=== PATIENT | male | born 2000 | race Caucasian/White ===

== ENCOUNTER 2024-01-04 14:50 | Emergency (ER) | payer OTHER, SELFPAY ==
[2024-01-04 14:53] VITALS: BP 132/55; PULSE 79; RESP 18; TEMP 36.7; O2SAT 98
--- NOTE | 2024-01-04 15:00 | DI.RAD_ITS ---
Exam(s) XR CLAVICLE RT EXAM: XR CLAVICLE RT CLINICAL HISTORY: fall-deformity. TECHNIQUE: 2D digital imaging was performed. COMPARISON: No exams were available for comparison FINDINGS: 3 views There is an acute comminuted displaced midshaft fracture of the clavicle. No dislocation of the AC j oint. Bone density normal. No osseous lesions. IMPRESSION: Comminuted displaced midshaft fracture. DATA REPOSITORY: RADIATION DOSE DELIVERED:
[2024-01-04] MEDS: ACETAMINOPHEN 1,000 MG/100 ML BTL 400 MG IVPB (15:16)
[2024-01-04] MEDS: Ketorolac 15 MG/ML VIAL IVP (15:17)
--- NOTE | 2024-01-04 16:06 | W.ED.GENAD ---
Discharge Plan Discharge Details Chief Complaint: Orthopedic Primary Care Provider: Karen,Local ED Provider: Dusty Lira Home Meds and New Rx's Prescriptions: No Action No Known Home Meds HPI General Mode of arrival: ambulatory. Date/Time Provider Initiated Documentation: 01/04/24 14:54. Limitations to Documentation: no limitations. Information obtained by: patient and RN notes reviewed. History of Present Illness 24 year old M presents to the emergency department with the chief complaint of Fall, snowboarding injury right shoulder/clavicle injury, described as severe, Quality is described as constant, and is localized to the right and upper extremity. Patient started experiencing this hour(s) (1-2) and it has been constant. Immobilization improves symptom(s), Movement worsens symptoms . Patient notes no other symptoms.. Patient did receive the following treatments prior to arrival, none Related Data Home Medications Medication Instructions Recorded Confirmed Unknown [No Known Home Meds] 01/04/24 01/04/24 Allergies Allergy/AdvReac Type Severity Reaction Status Date / Time No Known Allergies Allergy Unverified 01/04/24 14:56 General Stated Complaint: Orthopedic MARA: 4 Review of Systems Cardiovascular Cardiovascular: Denies chest pain and Denies syncope Respiratory Respiratory: Denies pain on inspiration Gastrointestinal Gastrointestinal: Denies abdominal pain, Denies nausea and Denies vomiting Musculoskeletal Musculoskeletal: Reports as per HPI, Reports deformity, Denies numbness and Denies tingling Integumentary/Breasts Skin/Breast: Denies wounds Neurologic Neurologic: Denies syncope, Denies numbness and Denies tingling Exam Const General: cooperative, no acute distress and not ill appearing Orientation: alert, awake and oriented x3 HENOR Mouth: moist mucous membranes Resp Effort & Inspection: normal respiratory effort, able to speak in complete sentences and no respiratory distress Cardio Rate: regular rate Rhythm: regular rhythm Back/Spine/Pelvis Cervical Spine: normal cervical lordosis, cervical ROM normal and No cervical spinal tenderness Skin General skin exam: no rashes or lesions noted Neuro General: patient alert, patient awake, patient oriented x3, moves all extremities and no focal motor deficits Sensory Exam: no sensory deficits noted Extrem General: capillary refill normal Right upper extremity: shoulder/upper arm Details: tenderness Location: of the clavicle and of the A-C joint, axillary nerve sensory function normal, abnormal ROM Details: held in an abnormal fashion Details: in ADduction and in internal rotation and deformity Location: of the clavicle Location: mid-shaft; no A-C joint, wrist Details: normal vascular exam and hand Details: normal capillary refill, neuromotor exam normal, neurosensory exam normal and vascular exam Details: radial pulse present and normal capillary refill Course Vital Signs Vital signs: Vital Signs Temperature 36.7 C 01/04/24 14:53 Pulse 79 01/04/24 14:53 Respiratory Rate 18 01/04/24 14:53 Blood Pressure 132/55 L 01/04/24 14:53 Pulse Oximetry 98 01/04/24 14:53 Temperature 36.7 C 01/04/24 14:53 Temperature Source Skin 01/04/24 14:53 Pulse 79 01/04/24 14:53 Respiratory Rate 18 01/04/24 14:53 Blood Pressure 132/55 L 01/04/24 14:53 Blood Pressure Position Sitting 01/04/24 14:53 Pulse Oximetry 98 01/04/24 14:53 Oxygen Delivery Method Room Air 01/04/24 14:53 Oxygen Flow Rate 0 01/04/24 14:53 Pain Level 6 01/04/24 14:53 Medical Decision Making Patient presenting to the emergency department for chief complaint of snowboarding injury with right upper extremity injury and clavicle pain/deformity. Patient denies any other injury or trauma, denies syncope, headache, or focal neurological symptoms. Physical exam is positive for deformity to midshaft of the clavicle with some tenting of the skin noted. Exam is otherwise noncontributory with good pulse sensation and movement distal to the injury. Will perform radiological imaging and give ketorolac pending results. No other can contributing significant past medical history. Primary review of imaging shows comminuted midshaft fracture. I am concerned with amount of tenting noted to the skin so we will signout patient pending Ortho consult Quality:[facility] Health Related Social Needs: No Data to Display [facility] Social History Smoking risk assessment performed?: No Sign Out Sign Out Data: Sign Out Comment: I am concerned with amount of tenting noted to the skin so we will signout patient pending Ortho consult Last updated by Dusty Lira NP at 01/04/24 16:17
--- NOTE | 2024-01-04 16:27 | ED.PROG_ITS ---
Date of service: 01/04/24 Time of Service: 16:27 Medical Decision Making This dictation utilizes [id number] dictation software and may contain unedited grammatical errors. 24 y/o M presents to ED today with a chief complaint of R shoulder pain, crashed snowboarding around 1300. Has some tenting deformity at the mid-shaft R clavicle, seen in sign-out from Dusty Lira. Patients' medical history: negative, otherwise healthy. Family and social history: noncontributory. Pertinent exam findings / vital signs include R midshaft clavicle deformity with some mobile skin that is slightly tented- consulting orthopaedics. Differential / pathologies of concern include NV compromise of skin, fracture. Diagnostic studies of: -XR R Clavicle - shows comminuted R mid-shaft clavicle fracture that is displaced. Interventions of: -Consult orthopedics, sling, oxycodone to go. ED Course/Assessment/Plan: 24-year-old male suffered a fall snowboarding around 1300 today at [facility], landed on right shoulder, has a midshaft right clavicle deformity with some skin tenting, the skin is mobile but there is a fair bit of tenting with some whiteness in appearance with delayed capillary refill due to the mild amount of tenting. I consulted with orthopedics, the patient is not from the area and is traveling back on Thursday, he orthopedic physician events administrative assistant will consult with Dr. Gaines about timing of possible surgery, the patient could potentially injure this causing more tenting and displacement with any activities like toileting, a fall, significant long car rides. Orthopedics will reduce the patient's comminuted clavicle fracture tomorrow, he will be discharged home tonight so that he can get this procedure done before he leaves the area Thursday. They counseled him in the ED on n.p.o. after midnight, I did provide him oxycodone to go and recommend therapeutic dosing of Tylenol and ibuprofen. Findings not consistent with NV compromise. Disposition of Fracture of Right Clavicle. Patient verbalized understanding of the plan and return to ED criteria and engaged in shared decision making. Medical Records Medical records reviewed: Yes I reviewed the patient's medical records. Imaging Data Radiologic Study: Attestation: I personally reviewed and interpreted this imaging study as follows: Imaging: X-Ray Radiologist's impression: EXAM: XR CLAVICLE RT CLINICAL HISTORY: fall-deformity. TECHNIQUE: 2D digital imaging was performed. COMPARISON: No exams were available for comparison FINDINGS: 3 views There is an acute comminuted displaced midshaft fracture of the clavicle. No dislocation of the AC joint. Bone density normal. No osseous lesions. IMPRESSION: Comminuted displaced midshaft fracture. Quality:[facility] Health Related Social Needs: No Data to Display Sign Out Sign Out Data: Sign Out Comment: I am concerned with amount of tenting noted to the skin so we will signout patient pending Ortho consult Last updated by Dusty Lira NP at 01/04/24 16:17 Discharge Plan Disposition Patient Disposition: Home Condition: Stable Discharge Details Clinical Impression: Fracture of right clavicle Primary Care Provider: Karen,Local ED Provider: Joe Walker Home Meds and New Rx's Prescriptions: No Action No Known Home Meds Discharge Instructions Instructions: Clavicle Fracture (ED) Additional Instructions: You were seen in the emergency department for the fracture of your right clavicle with some skin tenting, this needs orthopedic specialty care and procedure tomorrow to reduce the fracture. Please take nothing by mouth including water after midnight. Please use therapeutic dosing of Tylenol (acetamenophen) & Advil (ibuprofen) in an alternating fashion as follows: Take 1000mg of Tylenol every 6 hours without missing doses- that is 4 times per day. Longterm in between the Tylenol dosings, take 400-600mg of Advil also on a 6 hour schedule, that is also 4 times per day. The daily maximum dosing of Tylenol is 4000mg, and the daily maximum dosing of Advil is 2400mg. This is safe to do for weeks. Please note that some common cold medications & prescription pain medications may contain acetamenophen and you need to read OTC drug labels and factor that in to maximum daily dosings. I am sending you home with a small supply of oxycodone to add in for breakthrough pain, please rest, and gently compress with ice, ice to complete numbness then let rewarm. Please return to the ER immediately if at any point tonight you experience complete numbness of the entire right upper extremity, coolness to touch in the right arm with extreme pain. Referrals: [facility] [Provider Group] Discharge Data Discharge Date/Time-TO BE ENTERED AT DEPARTURE: 01/04/24 17:45
[2024-01-04 17:44] VITALS: BP 119/66; PULSE 83; RESP 18; O2SAT 98
--- NOTE | 2024-01-04 17:48 | W.ORTHOCONSU ---
Date of service: 01/04/24 Time of Service: 15:10 History of Present Illness History of Present Illness Chief Complaint: Right Clavicle Fracture Narrative: Allen is a 24-year-old who is visiting from [place] and was snowboarding today. He fell landing onto his right shoulder with immediate pain and deformity. There is prominence of the clavicle bone and he was brought to the emergency department for evaluation. He reports significant pain with any attempted rotation of the right arm. He reports pain directly over the clavicle and the right side. He denies any head trauma. No loss of consciousness. He denies any numbness or tingling. He denies any pain with the elbow, forearm, wrist, or hand. His parents do report a previous fracture of one of the clavicles when he was about 4. Consults Consult date: 01/04/24 Requesting physician: Joe Walker Consult Reason Right clavicle fracture with tenting Assessment and Plan Assessment and plan (1) Fracture of right clavicle: Status: Acute Assessment and plan: Allen is a 24-year-old active male who unfortunate suffered a fall while snowboarding. Unfortunately he does have a clavicle fracture about the right side. While the skin moves freely the skin is tented and blanched. The blanching of the skin is concerning as this could result in skin necrosis. While the skin is not truly tethered making this a urgent surgery, the blanched appearance of the skin does necessitate that this become fixed sooner rather than later. He is currently planning to fly back on Thursday night. The concern is that he does not have any orthopedic surgeon at home given that they are new to the area where they live. I do not have any contacts in that area and I do worry about any prolonged wait may result in skin necrosis and significant complication and morbidity. Therefore, I recommend moving forward with fixation of the right clavicle. Given that the skin is mobile I think this can wait to the lighted day tomorrow. Will plan to do this to the outpatient surgery area. I reviewed the surgery with him and his parents. I discussed with him the technical details of an open reduction internal fixation of the right clavicle. I reviewed risk to include bleeding, infection, pain, stiffness, hardware prominence, hardware failure, damage to nerves and vessels, particularly crossing nerves of the anterior chest, malunion, nonunion, need for repeat procedures. Despite these risk, he elects to proceed. He will be given pain medication and a sling tonight. He will be n.p.o. after midnight except for clear liquids till about 8 AM. I will plan to add this on tomorrow through the day surgery unit. Review of Systems All systems reviewed & are unremarkable except as noted in HPI and below PFSH All Active Problems Fracture of right clavicle (Acute) Social History Smoking risk assessment performed?: No Exam Narrative Exam Narrative: Sitting up in the hospital stretcher. No acute distress. Alert and orient x 3. Head is normocephalic and atraumatic. Evaluation of the right shoulder shows an obvious deformity the right clavicle. There is prominence to the skin with an underlying fracture fragment. The skin is blanched in this area. It is not tethered. The skin does move freely over this area but there is exquisite pain in doing so. The skin color does appear slightly giovanny when compared to the contralateral side although the skin does move freely. There is exquisite pain with any attempted mobility of that skin. He is able demonstrate motion of the fingers and the hand without limitation. Sensation intact to light touch over the axillary, median, radial, ulnar nerve. No pain with palpation of the distal humerus, elbow, forearm, wrist, hand or fingers. He has intact thumb extension, thumb flexion, interossei function. Palpable radial pulse. Const General: cooperative, healthy appearing, uncomfortable, no acute distress and well developed Resp Effort & Inspection: normal respiratory effort Auscultation: clear to auscultation bilaterally Cardio Rate: regular rate Rhythm: regular rhythm Results Last Vital Signs Temp 36.7 C 01/04/24 14:53 Pulse 83 01/04/24 17:44 Resp 18 01/04/24 17:44 BP 119/66 01/04/24 17:44 Pulse Ox 98 01/04/24 17:44 Imaging Imaging Studies: X-ray of the right clavicle shows a midshaft clavicle fracture with a small butterfly fragment. The true clavicle view shows superior migration of the medial fracture fragment with a pointed edge facing superiorly. No other humeral shoulder fracture seen. No other suspicious lesions.
== END 2024-01-04 17:45 | disposition home or self-care (01) ==
PROVIDERS: Emergency Provider Physician Assistant
DX: S42.021A Displaced fracture of shaft of right clavicle, initial encounter for closed fracture; Y93.23 Activity, snow (alpine) (downhill) skiing, snowboarding, sledding, tobogganing and snow tubing
CPT/HCPCS: 00123; 96365; 96374; 99284; 73000; J0131; J1885

== ENCOUNTER 2024-01-05 11:58 | Day surgery (SDC) | payer OTHER, SELFPAY ==
[2024-01-05] VITALS (10 sets, daily range): BP systolic 95–129; BP diastolic 40–83; PULSE 60–87; RESP 13–18; TEMP 36.5–36.8; O2SAT 95–100; BMI 20.6
--- NOTE | 2024-01-05 07:39 | PDOC.DSDIS_ITS ---
Date of service: 01/05/24 Time of Service: 07:39 Discharge Plan Disposition Patient Disposition: Home Condition: Good Discharge Details Reason For Visit: ORIF R Clavicle Attending Provider: Arnoldo Gaines Primary Care Provider: Karen,Local Home Meds and New Rx's Prescriptions: New acetaminophen 500 mg tablet 1,000 mg PO TID Qty: 90 0RF ibuprofen 600 mg tablet 600 mg PO TID PRN (Reason: pain) Qty: 90 0RF oxycodone 5 mg tablet 5 mg PO Q4H MDD 6 tabs PRN (Reason: pain) Qty: 20 0RF No Action ibuprofen [Advil] 200 mg tablet 400 mg PO DIRECTED Discharge Instructions Additional Instructions: Clavicle Fracture Fixation Discharge Instructions Activity: You should keep arm in a sling as possible for the first few days. You may use the other fingers as tolerated but avoid trying to do too much too soon. After the first few days you may start moving your arm as tolerated. You have no positioning restrictions but should avoid reaching across your body or away from your body or over head. It is good to take breaks from the sling to keep your elbow from getting stiff. Dressing/Cast: Your sling should stay in place at all times. You may shower after 72 hours but avoid getting the dressing wet. You may cover it with cling wrap. This dressing may come off after a few days but I recommend you keep it in place at least for the first week. All the sutures are buried in the skin. Medications: - You should take Tylenol and Ibuprofen for baseline pain control. - You have been prescribed a stronger pain medication, Oxycodone, for breakthrough pain. - You may apply ice over the wrist, just double bag so it doesn't get wet. Follow-up: 10-14 days. If you have any acute concerns or questions, please do not hesitate to contact the office at [phone]. You may contact Dr. Gaines with any questions after hours through the hospital at [phone] or on his cell phone at [phone]. Referrals: Arnoldo Gaines MD [ [facility] STAFF PHYSICIAN] - Equipment/Supplies: Sling Activity:: Elevate Remove Dressings/Wound Care:: 72 hours Shower/Bathe:: Cover Diet:: As Tolerated Discharge Orders Discharge Orders: Discharge Order (Routine); Ordered 01/05/24 Ordered By: Lorenzo Lemon DS: Diagnosis Discharge Diagnosis (1) Fracture of right clavicle: Status: Acute
--- NOTE | 2024-01-05 12:00 | DI.RAD_ITS ---
Exam(s) XR SHOULDER RT 1V EXAM: XR SHOULDER RT 1V CLINICAL HISTORY: Right Clavicle Fracture TECHNIQUE: 2D and realtime digital imaging was performed. CONTRAST MATERIAL: Refer to procedure report. COMPARISON: CR XR CLAVICLE RT from 01/04/2024 FINDINGS: Fluoroscopy was provided for Dr. Gaines during the performance of a open reduction and internal fi xation of the right clavicular fracture. Please refer to the procedure report for complete details. Ka,r=0.40 mGy IMPRESSION: RADIATION DOSE DELIVERED: 0.0 177.0 0
[2024-01-05] MEDS: Acetaminophen 500 MG TAB 1000 MG PO (12:55)
[2024-01-05] MEDS: Celecoxib 200 MG CAP PO (12:55)
[2024-01-05] MEDS: Lactated Ringers 1,000 ML 80 ML IV (13:00)
--- NOTE | 2024-01-05 13:05 | W.ANESPRE ---
General Info Date of Service Date Performed: 01/05/24 Height: 6 ft 2 in Weight: 72.8 kg Body Mass Index (BMI): 20.6 Surgical Procedure: Operation Date: 01/05/24 13:55 Proposed Procedure Side Surgeon p Shoulder ORIF Clavicle Right Arnoldo Gaines MD Meds Allergies and Home Medications Allergies Allergy/AdvReac Type Severity Reaction Status Date / Time No Known Allergies Allergy Verified 01/05/24 12:41 Home Medication Medication Instructions Recorded acetaminophen 500 mg tablet 1,000 mg (2 x 500 mg) PO TID #90 01/05/24 tabs ibuprofen 200 mg tablet (Advil) 400 mg PO DIRECTED 01/05/24 ibuprofen 600 mg tablet 600 mg PO TID PRN pain #90 tabs 01/05/24 oxycodone 5 mg tablet 5 mg PO Q4H PRN pain #20 tabs 01/05/24 Current Visit Medications: Current Medications Generic Name Dose Route Start Last Admin Trade Name Freq PRN Reason Stop Dose Admin Acetaminophen 650 mg 01/05/24 07:38 Acetaminophen 325 Mg Tab PO 02/04/24 07:37 Q4H PRN PRN Acetaminophen 1,000 mg 01/05/24 06:00 01/05/24 12:55 Acetaminophen 500 Mg Tab PO 01/05/24 23:59 1,000 mg PREOP VIKTORIYA Administration Celecoxib 200 mg 01/05/24 06:00 01/05/24 12:55 Celecoxib 200 Mg Cap PO 01/05/24 23:59 200 mg PREOP VIKTORIYA Administration Ringer's Solution 1,000 mls @ 80 mls/hr 01/05/24 06:00 IV 01/05/24 23:59 INFUSION VIKTORIYA Cefazolin Sodium/Dextrose 2 gm in 50 mls @ 100 mls/hr 01/05/24 06:00 Ancef Duplex IVPB 01/05/24 23:59 PREOP VIKTORIYA IV Miscellaneous Supplies 1 each 01/05/24 06:00 Iv Access IV 01/05/24 23:59 DIRECTED VIKTORIYA Oxycodone/Acetaminophen 1 tab 01/05/24 07:38 Oxycodone 5 Mg/Acetaminophen 325 Mg Tab PO 02/04/24 07:37 Q4H PRN PRN Pain Sodium Chloride 0 ml 01/05/24 06:00 Normal Saline Flush 10 Ml Syr IV 01/05/24 23:59 PRN PRN Sodium Chloride 0 ml 01/05/24 06:00 Normal Saline 10 Ml Vial IJ 01/05/24 23:59 DIRECTED PRN Sterile Water 0 ml 01/05/24 06:00 Water,Injection,Sterile 10 Ml Vial IJ 01/05/24 23:59 DIRECTED PRN PFSH Active Problems Active Problems: Problem Status Onset Code Fracture of right clavicle 01/04/24 S42.001A Medical History Medical History Clavicle fracture Per mom states he has fracture his (R) clavicle before not requiring surgery. Stated it was when he was 18 months old. Tobacco Smoking/Tobacco Use Status: Never Alcohol Alcohol Intake: current Alcohol intake frequency: a few times a month Substance Use Substance use: Never Substance use type: does not use Vital Signs and Lab Results Vital Signs Most Recent Vital Signs in EMR: Most Recent Vital Signs Temp Pulse Resp BP Pulse Ox 36.8 C 87 16 129/83 95 01/05/24 12:28 01/05/24 12:28 01/05/24 12:28 01/05/24 12:28 01/05/24 12:28 Lab Results Blood Type / Crossmatch: No Data to Display Complete Blood Count: No Data to Display Complete Metabolic Panel: No Data to Display Liver Function Panel: No Data to Display Coagulation Panel: No Data to Display Cardiac Panel: No Data to Display Arterial Blood Gas: No Data to Display Venous Blood Gas: No Data to Display Pancreas Panel: No Data to Display Thyroid Panel: No Data to Display Infectious Disease: No Data to Display Blood Cultures: No Data to Display Toxicology Panel: No Data to Display Anesthesia Assessment and Plan Anesthesia History Personal History: No History of Anesthesia Complications Family History: No Family History of Anesthesia Complications Exercise Tolerance Exercise Tolerance: Metabolic Equivalents>4 Pertinent Negatives Pertinent Negatives: No Symptoms of GERD, No Major Cardiovascular Symptoms or Complaints and No Major Pulmonary Symptoms or Complaints Cardiac & Pulmonary Exam Cardiac Exam: Normal S1/S2 Heart Sounds Pulmonary Exam: Clear Bilateral Breath Sounds Implantable Cardiac Device Does patient have a Pacemaker or an ICD?: No Airway Exam Known Difficult Airway: No Mallampati Class: 3 Mouth Opening: Normal (> 3cm) Thyromental Distance: Greater than 3 cm Neck Range of Motion: Full ROM Neck Circumference: Normal Teeth Condition: Normal Dentition ASA Classification ASA Score: ASA 2 Emergency Case?: No NPO Status NPO Status: NPO Clears >2 hours, Solids >8 hours Anesthesia Plan Resuscitation Status: Full Code Anesthesia Technique: General Anesthesia Airway Planned: LMA Monitors Used: Standard Monitors
[2024-01-05] MEDS: ceFAZolin 2 GM/50 ML BAG IVPB (13:24)
[2024-01-05] MEDS: Ketorolac 15 MG/ML VIAL IVP (15:56)
--- NOTE | 2024-01-05 16:41 | W.ANESPOSTOP ---
Postoperative Evaluation Date, Time and Location Date Performed: 01/05/24 Time Performed: 16:41 Patient Location: Day Surgery Unit Vital Signs Most Recent Imported Vital Signs: Most Recent Vital Signs Temp Pulse Resp BP Pulse Ox 36.6 C 65 18 105/64 100 01/05/24 16:36 01/05/24 16:36 01/05/24 16:36 01/05/24 16:36 01/05/24 16:36 Pain Score Most Recent Pain Score: Most Recent Pain Score Pain Level 0 01/05/24 16:36 Assessment Mental Status: Awake (Alert & Oriented to Patient Baseline) Airway and Respiratory Function: Patent airway with normal (patient baseline) respiratory exam Cardiovascular Function: Hemodynamically Stable Hydration Status: Adequately Hydrated Nausea & Vomiting: No Nausea or Vomiting Pain: Pt. Denies Any Pain Peripheral Nerve Block: Patient did not receive a nerve block
--- NOTE | 2024-01-05 16:46 | ROE_ITS ---
Date of service: 01/05/24 Time of Service: 13:30 Operative Note Operative Note DATE OF PROCEDURE: 01/05/24 PRE-OP DIAGNOSIS: Right Clavicle Fracture with Skin Tenting POST-OP DIAGNOSIS: same PROCEDURE: Open Reduction and Internal Fixation of a Clavicle Fracture - RIGHT SURGEON: Arnoldo Gaines BORDER INSPECTOR: Debo Haines ANESTHESIA TYPE: General LMA/ETT Refer to Anesthesia Record ESTIMATED BLOOD LOSS: 20 PATHOLOGY: none sent COMPLICATIONS: None Patient was transported to: PACU Patient's condition: stable Implants: Synthes 2.7 mm variable angle midshaft clavicle plate Indications: Allen is a 23 year old male who suffered a clavicle fracture. Due to the amount of displacement and the threatened skin tented over the fracture edge I recommended operative fixation. I reviewed the possible treatment options and the patient agreed to proceed with operative intervention after discussion of the risk as well which included bleeding, infection, pain, stiffness, hardware prominence, hardware failure, damage to nerves and vessels, pneumothorax, anterior chest wall numbness, need for repeat procedures, malunion, nonunion. Despite these risk, the patient agreed to proceed. Findings: There was a displaced clavicle fracture with the butterfly fragment rotated 90 degrees, tethered against the distal fragment with the other end of this butterfly fragment tenting the skin. This was reduced to the lateral fragment and secured with a lag screw. The fracture construct was then fixed with plate and screws after being openly reduced. Procedure Description: Allen was greeted in the preoperative holding area. His identity was confirmed and the correct side was identified and marked. The consent was reviewed the patient and signed. He was then taken to the operating room and placed in the supine position. A general anesthetic was given. Prophylactic antibiotics in the form of cefazolin were administered. The right shoulder area overlying the clavicle was then prepped with ChloraPrep. This was draped with 2 U drapes with some elevation behind his shoulder blade. A longitudinal incision was then drawn out on the skin overlying the clavicle. This was then injected with 0.25% bupivacaine. A longitudinal skin incision was then made. This was taken down through the skin. The prominence of the bone was immediately present underlying the skin. The fascia was torn in this area. Utilizing the tear in the platysma and the fascia I opened this up onto the clavicle. This was incised directly down to the clavicle and a maguire elevator was utilized to expose the fracture site. The butterfly fragment was actually turned 90 degrees where the angled pointed end, the medial side, was directed anteriorly underneath the skin. The lateral edge of this butterfly fragment was wedged underneath the lateral fragment. This was freed up and rotated back into position. I then clamped this to the lateral piece where it reduced nicely. This was then held with a clamp while a 2.7 mm lag screw was placed after the screw was placed we had excellent fixation of that fragment to the lateral fragment and then I reduced the medial lateral fragments together. It was difficult to lag lease together given the shape of the fracture as it rotated and narrowed posteriorly and inferiorly. However, a Synthes 2.7 mm variable angle plate fit nicely onto the fracture is able to reduce the fracture to the lateral fragment and the plate. X-ray confirmed per positioning of the plate and reduction of the fracture fragments. I used 2 K wires to hold the pieces r educed each other and used clamps to keep the plate down to the bone. I placed a single 2.7 mm cortical screw medially and laterally. This help compress the plate down to the bone. The reduction was maintained. I then completed this using three 2.7 mm locking screws medially. I placed an additional two 2.7 mm locking screws laterally and replaced the cortical screw with a locking screw as well. Final x-rays were obtained. This showed appropriate reduction of the clavicle fracture. The wound was thoroughly irrigated. The deep tissues and the periosteum were injected with 0.25% bupivacaine. The clavipectoral fascia was then reapproximated with 0 Vicryl. The platysma was closed with a running 2-0 Vicryl. The deep layer was closed with 3-0 Vicryl. Skin was closed with a 4-0 Monocryl in a buried, subcuticular fashion, reinforced with skin glue. The wound was dressed with a Mepilex silver dressing. He was placed into a sling. At the end the case all counts are correct. He will be returning to [place] later this week. I will help facilitate follow- up for him down there. However, he should be seen in about 2 weeks for wound check and follow-up x-ray. He may move the shoulder, elbow, and hand as tolerated and use a sling for comfort. He should limit weightbearing and any lifting as well as reaching across his body or away from his body.
== END 2024-01-05 17:45 | disposition home or self-care (01) ==
LOC: SUR 11:58
PROVIDERS: Visit Provider Student in an Organized Health Care Education/Training Program
PROC: (CPT 23515; principal; 2024-01-05 13:45)
DX: S42.001A Fracture of unspecified part of right clavicle, initial encounter for closed fracture (principal); S42.021A Displaced fracture of shaft of right clavicle, initial encounter for closed fracture; W19.XXXA Unspecified fall, initial encounter; Y93.23 Activity, snow (alpine) (downhill) skiing, snowboarding, sledding, tobogganing and snow tubing
CPT/HCPCS: 23515; 76000; 73020; J0690; J1100; J1885; J2250; J2371; J2405; J2704